=== PATIENT | male | born 1955 | race Caucasian/White ===

== ENCOUNTER 2021-03-04 12:30 | Emergency (ER) | payer BC, SELFPAY ==
[2021-03-04] VITALS (7 sets, daily range): BP systolic 91–134; BP diastolic 62–78; PULSE 74–80; RESP 16–24; TEMP 37.6; O2SAT 87–98; BMI 21.3
--- NOTE | 2021-03-04 15:52 | XRR_ITS ---
PROCEDURE INFORMATION: Exam: XR Chest Exam date and time: 03/04/2021 3:52 PM Age: 65 years old Clinical indication: Shortness of breath; Additional info: SOB, hypoxia, covid+ 4 days TECHNIQUE: Imaging protocol: XR of the chest. Views: 1 view. COMPARISON: No relevant prior studies available. FINDINGS: Lungs: The lungs are emphysematous. A calcified granuloma is present in the right lower lobe. Lateral bilateral midlung opacities (left greater than right) are noted, which likely represent pneumonia. Pleural spaces: Unremarkable. No pleural effusion. No pneumothorax. Heart/Mediastinum: Unremarkable. No cardiomegaly. Bones/joints: Unremarkable. XR/XR chest 1V portable [id number] IMPRESSION: 1. Early multilobar pneumonia. 2. Pulmonary emphysema.
[2021-03-04 16:23] LABS: Basophils % 0.4 %; Hematocrit 45.5 % (42.0-52.0); Hemoglobin 15.2 g/dL (11.7-16.6); Lymphocytes # 0.9 10^3/uL (0.8-4.8); Lymphocytes % 18.2 %; Mean Corpuscular HGB Conc 33.4 g/dL (30.0-36.0); Mean Corpuscular Hemoglobin 30.8 pg (28.0-34.0); Mean Corpuscular Volume 92.3 fl (80-94); Mean Platelet Volume 9.8 fL (7.4-10.4); Monocytes # 0.5 10^3/uL (0.2-0.9); Monocytes % 10.2 %; Neutrophils # 3.62 10^3/uL (1.8-7.7); Nucleated Red Blood Cells % 0 %; Platelet Count 148 10^3/cmm (130-400); Red Blood Count 4.93 10^6/uL (4.1-5.3); White Blood Count 5.1 10^3/uL (4.0-10.0)
[2021-03-04 16:42] LABS: Lactic Sepsis W/Reflex 1.1 mmol/L (0.5-2.2)
[2021-03-04 16:47] LABS: Alanine Aminotransferase 17 U/L (0-41); Albumin Level 3.9 g/dL (3.5-5.2); Alkaline Phosphatase 101 IU/L (40-130); Aspartate Amino Transferase 23 U/L (0-40); Blood Urea Nitrogen 10 mg/dL (8-23); C Reactive Protein 42.3 mg/L (0.0-4.9); Calcium 8.4 mg/dL (8.5-10.5); Carbon Dioxide 27 mmol/L (22-29); Chloride 98 mmol/L (98-107); Globulin 2.9 g/dL (1.3-4.6); Glomerular Filtration Rate 97.6 mL/min (90-130); Glucose 117 mg/dL (65-115); Osmolality Calculated 278 mOsm/kg (285-295); Sodium 134 mmol/L (136-145); Total Bilirubin 0.4 mg/dL (0.15-1.2); Total Protein 6.8 g/dL (6.6-8.7)
[2021-03-04 16:49] LABS: Anion Gap 13.2 (5-19); Potassium 4.2 mmol/L (3.5-5.1)
--- NOTE | 2021-03-04 16:53 | W.ED.SOB ---
HPI - SOB/Dyspnea General: Chief Complaint: Shortness of Breath/Dyspnea Stated Complaint: covid +, low o2 Time Seen by Provider: 03/04/21 15:07 Source: patient Mode of arrival: ambulatory Limitations: no limitations History of Present Illness: HPI Narrative: Patient is a 65-year-old male with a history of hypertension who presents to the emergency department with complaints of shortness of breath. Symptoms started 4 days ago. He also has a headache, change in in taste, nausea but no vomiting. He got tested for COVID-19 today and he tested positive. He was sent to the emergency department for possible monoclonal antibody infusion but when he arrived at the emergency department his oxygen saturation was about 85% on room air. He was placed on oxygen at 4 L/min and brought back. MD elicited complaint: shortness of breath Onset (ago): day(s) (4) Severity: mild Exacerbating factors: nothing Relieving factors: nothing Associated symptoms: Reports cough, fever(s) and nausea; Deny abdominal pain, chest congestion, chest pain, diaphoresis, dizziness, extremity pain, hemoptysis, lightheadedness, myalgias, orthopnea, palpitations, paresthesias, polydipsia, polyuria, rash, sense of impending doom, syncope or vomiting Treatment prior to arrival: none Review of Systems General: Reports: 10 or more systems reviewed and unremarkable except in HPI and below Const: Reports: fever(s); Denies: diaphoresis Card: Denies: chest pain, palpitations, lightheadedness, syncope or orthopnea Resp: Denies: hemoptysis or chest congestion GI: Reports: nausea; Denies: abdominal pain or vomiting Musc: Denies: extremity pain Neuro: Denies: dizziness Endo: Denies: polyuria or polydipsia Physical Exam Const: COMMON NORMALS: no acute distress, average body habitus, patient oriented x3, no limitations, healthy appearing, alert and well nourished HENMT: COMMON NORMALS: normocephalic, atraumatic and moist oral mucous membranes HEAD & SCALP: normocephalic and atraumatic Neck/C-Spine: COMMON NORMALS: no meningeal signs and no JVD Resp: COMMON NORMALS: normal respiratory effort, No retractions, No use of accessory muscles, clear to auscultation bilaterally and percussion normal AUSCULTATION: clear to auscultation bilaterally PERCUSSION: percussion normal Cardio: COMMON NORMALS: no JVD, regular rate, regular rhythm, S1 normal heart sound present, S2 normal heart sound present, No gallops present (Cardio), No clicks present (Cardio), No murmurs present (Cardio), No rub (Cardio) and Peripheral pulses 2+ throughout RATE: regular rate RHYTHM: regular rhythm HEART SOUNDS: S1 normal heart sound present and S2 normal heart sound present PERIPHERAL PULSES: Peripheral pulses 2+ throughout GI: COMMON NORMALS: Normal to inspection, nondistended, normoactive bowel sounds present, Soft to palpation, non-tender, No hepatosplenomegaly present, no masses and no bruits PALPATION: Yes Soft to palpation and Yes No hepatosplenomegaly present Extremity: COMMON NORMALS: normal to inspection, full ROM, capillary refill normal, no calf tenderness and no pedal edema Neuro: COMMON NORMALS: patient oriented x3 SENSORIUM/ORIENTATION: Yes alert MENINGEAL SIGNS: Yes no meningeal signs Skin: COMMON NORMALS: no rashes or lesions noted, no wounds, turgor normal, no jaundice, no petechiae and no mottling GENERAL SKIN EXAM: no rashes or lesions noted and turgor normal Course Reevaluation(s): Reevaluation #1: Discussed his lab and imaging findings with him. He is hypoxic and is requiring oxygen to maintain is saturations. He tested positive for COVID-19 today. He is otherwise clinically stable. His lab and imaging findings are not concerning. He will be discharged home with home oxygen, he is to monitor his oxygen saturations at home and is to return if he becomes hypoxic. He voiced understanding and all questions answered. Time: 21:09 Vital Signs: Vital signs: Vital Signs Temperature 99.6 F 03/04/21 12:56 Pulse Rate 77 03/04/21 21:22 Respiratory Rate 18 03/04/21 21:22 Blood Pressure 134/78 03/04/21 19:29 Pulse Oximetry 94 03/04/21 21:22 MDM - SOB/Dyspnea MDM Narrative: Medical decision making narrative: This pleasant 65 year old male presents to the ED with shortness of breath and feeling unwell for about 4 days. He tested positive for COVID today. In the ED he was hypoxic but did well on oxygen at 3 lpm. Evaluation in the ED was otherwise unremarkable. He is discharged home with home oxygen and is to monitor his oxygen saturations at home. If they drop below 90% and stay below 90% he is to return for evaluation. Medical Records: Attestation: I reviewed the patient's medical records. Lab Data: Attestation: I reviewed the patient's lab results. Labs: Lab Results 03/04/21 03/04/21 03/04/21 Range/Units 16:17 16:17 16:17 WBC 5.1 (4.0-10.0) 10^3/ uL RBC 4.93 (4.1-5.3) 10^6/u L Hgb 15.2 (11.7-16.6) g/dL Hct 45.5 (42.0-52.0) % MCV 92.3 (80-94) fl MCH 30.8 (28.0-34.0) pg MCHC 33.4 (30.0-36.0) g/dL RDW 13.0 (12.1-15.1) % Plt Count 148 (130-400) 10^3/c mm MPV 9.8 (7.4-10.4) fL Neut % (Auto) 71.0 % Lymph % (Auto) 18.2 % [place] % (Auto) 10.2 % Eos % (Auto) 0.0 % Baso % (Auto) 0.4 % Neut # (Auto) 3.62 (1.8-7.7) 10^3/u L Lymph # (Auto) 0.9 (0.8-4.8) 10^3/u L [place] # (Auto) 0.5 (0.2-0.9) 10^3/u L Eos # (Auto) 0.0 (0.0-0.8) 10^3/u L Baso # (Auto) 0.0 (0.0-0.1) 10^3/u L Nucleated RBC % (a uto) 0 % Nucleated RBCs # 0.0 /100WBC Specimen Type Sample Site ABG pH (7.35-7.45) ABG pCO2 (35-45) mmHg ABG pO2 (80.0-100.0) mmH g ABG HCO3 (22-26) mmol/L ABG Base Excess (-2.0-2.0) mmol/ L Uday Test Hematocrit (42-52) % O2 Delivery Device O2 Liters/Min % FiO2 % Emt Intermediate ID Sodium 134 L (136-145) mmol/L Potassium 4.2 (3.5-5.1) mmol/L Chloride 98 (98-107) mmol/L Carbon Dioxide 27 (22-29) mmol/L Anion Gap 13.2 (5-19) BUN 10 (8-23) mg/dL Creatinine 0.8 (0.7-1.2) mg/dL GFR Calculation 97.6 (90-130) mL/min Glucose 117 H (65-115) mg/dL Calculated Osmolal ity 278 L (285-295) mOsm/k g Lactic Acid 1.1 (0.5-2.2) mmol/L Calcium 8.4 L (8.5-10.5) mg/dL Ferritin 1800 H (30-400) ng/mL Total Bilirubin 0.4 (0.15-1.2) mg/dL AST 23 (0-40) U/L ALT 17 (0-41) U/L Alkaline Phosphata se 101 (40-130) IU/L C-Reactive Protein 42.3 H (0.0-4.9) mg/L Total Protein 6.8 (6.6-8.7) g/dL Albumin 3.9 (3.5-5.2) g/dL Globulin 2.9 (1.3-4.6) g/dL Procalcitonin 0.06 (0-0.5) ng/mL 03/04/ Range/Units 17:27 WBC (4.0-10.0) 10^3/ uL RBC (4.1-5.3) 10^6/u L Hgb (11.7-16.6) g/dL Hct (42.0-52.0) % MCV (80-94) fl MCH (28.0-34.0) pg MCHC (30.0-36.0) g/dL RDW (12.1-15.1) % Plt Count (130-400) 10^3/c mm MPV (7.4-10.4) fL Neut % (Auto) % Lymph % (Auto) % [place] % (Auto) % Eos % (Auto) % Baso % (Auto) % Neut # (Auto) (1.8-7.7) 10^3/u L Lymph # (Auto) (0.8-4.8) 10^3/u L [place] # (Auto) (0.2-0.9) 10^3/u L Eos # (Auto) (0.0-0.8) 10^3/u L Baso # (Auto) (0.0-0.1) 10^3/u L Nucleated RBC % (a uto) % Nucleated RBCs # /100WBC Specimen Type Arterial Sample Site Radial, right ABG pH 7.43 (7.35-7.45) ABG pCO2 38.5 (35-45) mmHg ABG pO2 65.6 L (80.0-100.0) mmH g ABG HCO3 25.6 (22-26) mmol/L ABG Base Excess 1.4 (-2.0-2.0) mmol/ L Uday Test Pos Hematocrit 49.5 (42-52) % O2 Delivery Device Nc O2 Liters/Min 4.0 % FiO2 36.0 % Emt Intermediate ID Ed Sodium (136-145) mmol/L Potassium (3.5-5.1) mmol/L Chloride (98-107) mmol/L Carbon Dioxide (22-29) mmol/L Anion Gap (5-19) BUN (8-23) mg/dL Creatinine (0.7-1.2) mg/dL GFR Calculation (90-130) mL/min Glucose (65-115) mg/dL Calculated Osmolal ity (285-295) mOsm/k g Lactic Acid (0.5-2.2) mmol/L Calcium (8.5-10.5) mg/dL Ferritin (30-400) ng/mL Total Bilirubin (0.15-1.2) mg/dL AST (0-40) U/L ALT (0-41) U/L Alkaline Phosphata se (40-130) IU/L C-Reactive Protein (0.0-4.9) mg/L Total Protein (6.6-8.7) g/dL Albumin (3.5-5.2) g/dL Globulin (1.3-4.6) g/dL Procalcitonin (0-0.5) ng/mL Imaging Data^: CXR: Attestation: I personally reviewed and interpreted this imaging study as follows: Radiologist's impression: [address] [id number] ReportSigned Patient: Darrell Ewing #: [id number]: 1955cct#:[id number]/Sex: 65 / MADM Date: 03/04/21Loc: ERRoom/Bed:Attending Dr: Ordering Provider/Ordering MD: Sergio Luz MD, [facility] [place] Date of Service: 03/04/21 Procedure(s): XR chest 1V portable [id number] Accession Number(s): [id number] Report Number: [id number] PROCEDURE INFORMATION: Exam: XR Chest Exam date and time: 03/04/2021 3:52 PM Age: 65 years old Clinical indication: Shortness of breath; Additional info: SOB, hypoxia, covid+ 4 days TECHNIQUE: Imaging protocol: XR of the chest. Views: 1 view. COMPARISON: No relevant prior studies available. FINDINGS: Lungs: The lungs are emphysematous. A calcified granuloma is present in the right lower lobe. Lateral bilateral midlung opacities (left greater than right) are noted, which likely represent pneumonia. Pleural spaces: Unremarkable. No pleural effusion. No pneumothorax. Heart/Mediastinum: Unremarkable. No cardiomegaly. Bones/joints: Unremarkable. XR/XR chest 1V portable [id number] IMPRESSION: 1. Early multilobar pneumonia. 2. Pulmonary emphysema. Dictated By:Heber Ocasio MDSigned By:Heber Ocasio MDSigned Date/Time:03/04/218DD/ 1636 Discharge Plan Discharge Patient Disposition: Home Clinical Impression: Pneumonia due to 2019 novel coronavirus, Hypoxia Condition: Stable Prescriptions: New dexamethasone 6 mg tablet 6 mg PO DAILY Qty: 7 RF: 0 Continued atorvastatin 40 mg tablet 40 mg PO BEDTIME RF: 0 metoprolol succinate 50 mg tablet extended release 24 hr 50 mg PO QAM RF: 0 aspirin 81 mg Tablet,Delayed Release (Dr/Ec) 81 mg PO QAM RF: 0 Tylenol Extra Strength 500 mg Tablet 500 mg PO Q4H PRN (Reason: Pain) RF: 0 prasugrel 10 mg tablet 10 mg PO QAM RF: 0 Vitamin B-12 1,000 mcg/mL Drops 500 mcg PO EVERY OTHER DAY RF: 0 Discharge Orders: Discharge ED (Routine); Ordered 03/04/21 Ordered By: Sergio Luz Other Ambulatory Orders: DME: Oxygen (Order) Location: None Selected Ordered By: Sergio Luz Referrals: Arielle Wooten FNP [Primary Care Provider] - 1-3 days Discharge Diet: Usual diet Discharge Activity: Increase activity as tolerated Patient Instructions: Viral Pneumonia (ED) Activity Restrictions/Additional Instructions: Return for any new or worsening symptoms. Follow-up with your primary care provider within 3 days. Continue your home medications. Take the steroid as prescribed. Use the oxygen as needed. Check your oxygen levels using the pulse oximeter that you are sent home with. If your oxygen levels fall and remain below 90% then you need to return to the emergency department for evaluation. 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
[2021-03-04 16:54] LABS: Procalcitonin 0.06 ng/mL (0-0.5)
[2021-03-04 17:00] LABS: Ferritin 1800 ng/mL (30-400)
[2021-03-04 17:35] LABS: ABG PCO2 38.5 mmHg (35-45); ABG PH Result 7.43 (7.35-7.45); Arterial Blood Gas Hematocrit 49.5 % (42-52); Base Excess ABG 1.4 mmol/L (-2.0-2.0); Blood Gas Allen Test Pos; Blood Gas Sample Site Radial, right; Blood Gas Sample Type Arterial; HCO3 ABG 25.6 mmol/L (22-26); PO2 ABG 65.6 mmHg (80.0-100.0)
[2021-03-04 17:36] LABS: Blood Gas Operator Identificat ED; Oxygen Device NC
--- NOTE | 2021-03-04 19:28 | PC.NURSE ---
introductions made to patient, patient updated on plan of care, water to patient, patient denies any other needs at this time. vvs
--- NOTE | 2021-03-04 19:47 | PC.NURSE ---
patient walked around in room on room air, oxygen sat noted to drop to 86%. patient placed on 3lpm NC and was noted to rebound to 94%.
== END 2021-03-04 21:24 | disposition home or self-care (01) ==
PROVIDERS: Emergency Provider Family Medicine; PCP Nurse Practitioner Family
DX: U07.1 COVID-19 (principal); J12.82 Pneumonia due to coronavirus disease 2019; R09.02 Hypoxemia; I10 Essential (primary) hypertension
CPT/HCPCS: 36600; 71045; 80053; 82728; 82803; 83605; 84145; 85025; 86140; 99284